=== PATIENT | female | born 1950 | race Two or more races ===

== ENCOUNTER 2021-09-18 13:33 | Outpatient (CLI) | payer OTHER ==
[~2021-09-18 13:33] MED LIST: METROPOLOR; TUSSIONEX PENNKI5 ML PO; ZITHROMAX TRI-500 MG PO
== END 2021-09-18 13:35 | disposition home or self-care (01) ==
LOC: NUCLEAR 13:33
PROVIDERS: ATTEND Physical Medicine & Rehabilitation
DX: M81.0 Age-related osteoporosis without current pathological fracture (principal)

== ENCOUNTER 2021-09-23 07:19 | Outpatient (CLI) | payer OTHER | END 2021-09-23 07:20 | disposition home or self-care (01) | LOC: NUCLEAR 07:19 | PROVIDERS: ATTEND Physical Medicine & Rehabilitation | DX: M06.9 Rheumatoid arthritis, unspecified (principal) | CPT/HCPCS: 78315; A9503 ==

== ENCOUNTER 2022-02-19 16:01 | Outpatient (CLI) | payer OTHER | END 2022-02-19 16:14 | disposition home or self-care (01) | LOC: RAD 16:01 | PROVIDERS: ATTEND Physical Medicine & Rehabilitation | DX: M79.672 Pain in left foot (principal); M79.675 Pain in left toe(s) ==

== ENCOUNTER 2023-01-05 12:09 | Outpatient (CLI) | payer OTHER | END 2023-01-05 12:21 | disposition home or self-care (01) | LOC: MAMO-SONO 12:09 | PROVIDERS: ATTEND Internal Medicine | DX: M15.0 Primary generalized (osteo)arthritis (principal); Z12.31 Encounter for screening mammogram for malignant neoplasm of breast; N63.0 Unspecified lump in unspecified breast ==

== ENCOUNTER → 2023-01-10 | Outpatient (CLI) | payer OTHER | END | disposition home or self-care (01) | LOC: NUCLEAR 10:31 | PROVIDERS: ATTEND Internal Medicine | DX: G45.9 Transient cerebral ischemic attack, unspecified (principal) ==

== ENCOUNTER → 2023-01-10 | Outpatient (CLI) | payer OTHER | END | disposition home or self-care (01) | LOC: RAD 11:47 | PROVIDERS: ATTEND Internal Medicine | DX: M25.521 Pain in right elbow (principal) ==

== ENCOUNTER → 2023-01-26 | Outpatient (CLI) | payer OTHER | END | disposition home or self-care (01) | LOC: TOM 11:04 | PROVIDERS: ATTEND Internal Medicine | DX: G45.8 Other transient cerebral ischemic attacks and related syndromes (principal) ==

== ENCOUNTER 2024-09-26 13:46 | Outpatient (CLI) | payer OTHER | END 2024-09-26 13:57 | disposition home or self-care (01) | LOC: MRI 13:46 | PROVIDERS: ATTEND Orthopaedic Surgery | DX: M25.561 Pain in right knee (principal) | CPT/HCPCS: 73721 ==

== ENCOUNTER 2025-05-30 12:16 | Outpatient (CLI) | payer OTHER | END 2025-05-30 12:32 | disposition home or self-care (01) | LOC: RAD 12:16 | PROVIDERS: ATTEND Orthopaedic Surgery | DX: M25.562 Pain in left knee (principal); M25.561 Pain in right knee | CPT/HCPCS: 73721 ==

== ENCOUNTER 2025-08-14 12:14 | Outpatient (CLI) | payer OTHER | END 2025-08-14 12:23 | disposition home or self-care (01) | LOC: MRI 12:14 | PROVIDERS: ATTEND Physical Medicine & Rehabilitation | DX: M25.562 Pain in left knee (principal); M17.12 Unilateral primary osteoarthritis, left knee | CPT/HCPCS: 73721 ==